=== PATIENT | female | born 1945 | race African-American/Black ===

== ENCOUNTER → 2018-05-24 | Day surgery (SDC) | payer OTHER, MEDICARE ==
[2018-05-23 08:20] VITALS: BMI 24.7
[~2018-05-24] MED LIST: ACETAMINOPHEN 325 MG TABLET (FP) PO ONE; LACTATED RINGERS SOLUTION 1,000 ML IV SCH; ONDANSETRON 4 MG/2 ML VIAL IVPUSH PRN; ceFAZolin SODIUM 1 GM VIAL IVPB ONE; oxyCODONE HCL 5 MG TABLET PO PRN
--- NOTE | 2018-05-24 17:04 | HP ---
History & Physical Update - History History: No Change - Physical Physical: No Change - Assessment Assessment: No Change - Plan Plan: No Change
[2018-05-24 18:24] VITALS: PULSE 80; TEMP 97.2
[2018-05-24 18:59] VITALS: BP 140/80
--- NOTE | 2018-05-25 12:02 | OP ---
DATE OF OPERATION: 05/24/2018 PREOPERATIVE DIAGNOSIS: Right breast cancer. POSTOPERATIVE DIAGNOSIS: Right breast cancer. PROCEDURE: Right breast wire-localized lumpectomy, sentinel node biopsy. SURGEON: Martha Garsia MD ANESTHESIA: General. ESTIMATED BLOOD LOSS: Minimal. COMPLICATIONS: None. This was a sterile procedure. INDICATION: Patient presented with a screening mammogram and ultrasound. The ultrasound noted 2 hypoechoic areas in the right 7 o'clock location. Needle biopsy of both of those showed invasive lobular carcinoma. My recommendation was a lumpectomy with sentinel node biopsy. The procedure was discussed with her. All of her questions answered. PROCEDURE IN DETAIL: Patient was brought to [facility] in [place], taken to breast imaging where a wire was used to localize the 2 clips in the right 7 o'clock location. She was then brought to Nuclear Medicine where I injected technetium-labeled sulfur colloid as an intradermal injection in the right breast 7 o'clock areolar border. She was then brought up to the operating room, and after induction of general anesthesia and 5 mL of isosulfan blue dye was injected into the right subareolar plexus, I also injected some peritumoral given she had a scar in the outer periareolar location. The breast was then massaged for 5 minutes. Next, the right breast and axilla were prepped and draped in usual sterile fashion. A 4-cm incision was made in the right axilla, carried down through the clavipectoral fascia to identify the very first sentinel node which was blue and hot. There were 2 other sentinel nodes. One was blue but not hot, and the other was hot and blue as well. These were all sent to Pathology for permanent section. There was no other blue dye, radioactivity, or pathologic feeling lymph nodes in the right axilla. Therefore, once hemostasis was assured, the right breast lumpectomy was performed. A radial incision was made in the lower outer right breast, and the wires were used as a guide to get down to the area of interest. This was excised en bloc, tagged with a long stitch lateral, short stitch superior. I felt I was close medially and anteriorly. Therefore, I took a new anterior margin over the medial tumor, as well as a new medial margin. These were tagged with a stitch at the old margin. The lumpectomy was sent specimen radiograph. I also took a new posterior margin with stitch at the old margin. This additional specimen was sent to Pathology for permanent section. The specimen radiograph showed 1 clip and 2 wires intact. Since it was possible that 1 clip had either fallen out or still in the breast. However, at this point, I would await the pathology from surgery as I feel I did get the area where the biopsies were performed, and nothing I felt in the lumpectomy cavity. Once hemostasis was assured, the lumpectomy parenchyma approximated with interrupted 2-0 Vicryl, skin approximated with interrupted 3-0 Vicryl and running 4-0 Prolene. The axillary incision also closed in the routine fashion of interrupted 3-0 Vicryl and running 4-0 Prolene. A sterile dressing with Tegaderm and 4 x 4's applied. She tolerated procedure well, was taken to Recovery in good condition. Harry [id number]
--- NOTE | 2018-05-29 15:51 | PATH ---
Surgical Pathology Report Patient Name: CRUZ REEDER [facility]. Rec. #: [id number] /Age/Gender: 1945 (Age: 72) / F Account: [id number] Location: [facility] SURGICAL Taken: 05/24/2018 Received: 05/25/2018 Reported: 05/29/2018 Physicians: Martha Garsia M.D. Specimen(s) Received A: RIGHT BREAST LUMPECTOMY B: RIGHT AXILLARY SENTINEL LYMPH NODE #1 C: RIGHT AXILLARY SENTINEL LYMPH NODE #2 D: RIGHT AXILLARY SENTINEL LYMPH NODE #3 E: RIGHT BREAST NEW ANTERIOR MARGIN F: RIGHT BREAST NEW MEDIAL MARGIN G: RIGHT BREAST NEW POSTERIOR MARGIN Clinical History Invasive Final Diagnosis AMENDED REPORT A. BREAST, RIGHT, LUMPECTOMY: TWO (2) FOCI OF INVASIVE LOBULAR CARCINOMA (TUBULE SCORE: 3/3, NUCLEAR GRADE: 2/3, MITOTIC SCORE: 1/3; TOTAL EDVIN SCORE: 6/9). INVASIVE CARCINOMA MEASURES 9 MM AND 4 MM IN GREATEST MICROSCOPIC DIMENSION. LOBULAR CARCINOMA IN SITU (LCIS), CLASSICAL TYPE. NO LYMPHOVASCULAR INVASION IDENTIFIED. ANTERIOR SURGICAL MARGIN IS INVOLVED BY INVASIVE CARCINOMA; ALL OTHER MARGINS ARE >5 MM AWAY. SEE SPECIMEN E-G FOR FINAL MARGINS. PRIOR BIOPSY SITE CHANGES ARE PRESENT. REMAINDER BREAST TISSUE SHOWS FIBROCYSTIC CHANGES. PATHOLOGIC STAGE (pTNM): pT1b (m) pN0(sn). SEE INVASIVE CARCINOMA CASE SUMMARY BELOW. B. AXILLARY SENTINEL LYMPH NODE #1, RIGHT, EXCISION: TWO LYMPH NODES NEGATIVE FOR CARCINOMA (0/2). C. AXILLARY SENTINEL LYMPH NODE #2, RIGHT, EXCISION: ONE LYMPH NODE NEGATIVE FOR CARCINOMA (0/1). D. AXILLARY SENTINEL LYMPH NODE #3, RIGHT, EXCISION: ONE LYMPH NODE NEGATIVE FOR CARCINOMA (0/1). E. BREAST, RIGHT, NEW ANTERIOR MARGIN, EXCISION: LOBULAR CARCINOMA IN SITU (LCIS), CLASSICAL TYPE WITH RARE MICROCALCIFICATIONS. NEGATIVE FOR INVASIVE CARCINOMA. F. BREAST, RIGHT, NEW MEDIAL MARGIN, EXCISION: BENIGN FIBROADIPOSE TISSUE. G. BREAST, RIGHT, NEW POSTERIOR MARGIN, EXCISION: BENIGN FIBROADIPOSE TISSUE AND SKELETAL MUSCLE. Comment: Immunohistochemical stains performed and interpreted at [facility] show the invasive carcinoma is positive for CK7; while negative for E-Cadherin, supportive of lobular phenotype. Findings discussed with Dr. Garsia. Comments Breast Invasive Carcinoma: Surgical Pathology Case Summary (Based on AJCC TNM 8 th edition) Procedure _X_ Excision (less than total mastectomy) Specimen Laterality _X_ Right Tumor Size _X_ Greatest dimension of largest invasive focus >1 mm (specify exact measurement) (millimeters): _9__ mm Histologic Type _X_ Invasive lobular carcinoma Histologic Grade ([place] Histologic Score) Glandular (Acinar)/Tubular Differentiation _X_ Score 3 (<10% of tumor area forming glandular/tubular structures) Nuclear Pleomorphism _X_ Score 2 Mitotic Rate _X_ Score 1 Overall Grade _X_ Grade 2 (scores of 6) Tumor Focality _X_ Multiple foci of invasive carcinoma Number of foci: _2_ Sizes of individual foci: _9 mm and 4 mm_ Ductal Carcinoma In Situ (DCIS) _X__ No DCIS in specimen Margins Invasive Carcinoma Margins _X__ Positive for invasive lobular carcinoma Specify margin(s): Anterior: Involved in lumpectomy (A); negative in final anterior margin (E); Regional Lymph Nodes Number of Lymph Nodes with Macrometastases (>2 mm): 0 Number of Lymph Nodes with Micrometastases (>0.2 mm to 2 mm and/or >200 cells): 0 Number of Lymph Nodes with Isolated Tumor Cells (=0.2 mm and =200 cells): 0 Number of Lymph Nodes Examined: 4 Number of Curlew Nodes Examined: 4 Treatment Effect _X__ No known presurgical therapy Lymphovascular Invasion _X__ Not identified Pathologic Stage Classification (pTNM, AJCC 8th Edition) TNM Descriptors (required only if applicable) _X_ m (multiple foci of invasive carcinoma) Primary Tumor (Invasive Carcinoma) (pT) _X__ pT1b: Tumor >5 mm but =10 mm in greatest dimension Regional Lymph Nodes (pN) Modifier (required only if applicable) _X__ (sn): Curlew node(s) evaluated. Category (pN) _X__ pN0: No regional lymph node metastasis identified or ITCs only Biomarker Studies are pending and will be reported separately. Electronically Signed Regi Lock M.D. Amendments Amended: 05/29/2018 Previous Signout Date: 05/29/2018 Comment: Part E, Change benign breast tissue to LCIS, classical type. Addendum Reported: 06/05/2018 Addendum Diagnosis Results of Estrogen Receptor (ER) and Progesterone Receptor (MS) studies performed on block "A1" at [facility] are as follows: ER (clone [id number] mouse monoclonal antibody by [employer]): ~90% nuclear staining with strong intensity (Positive). MS (clone16 mouse monoclonal antibody by [employer]):~70% nuclear staining with moderate to strong intensity (Positive). Positive and negative controls (internal if applicable) show appropriate results. Formalin fixation and cold ischemic times are within current ASCO/CAP recommendations for ER, MS and Her2 testing. Results of Her2 (IHC) & Ki-67 studies performed on block "A1" at [place], [place] ([id number]) are as follows: Her2 IHC (EP3 from [employer], formerly known as [id number], using [employer] Polymer Refine detection kit): 0 (Negative). Ki-67: ~10% (Low proliferative index). Positive and negative controls (internal if applicable) show appropriate results. Regi Lock M.D. Gross Description A. Received in formalin, labeled "right breast lumpectomy," is a 6.2 x 5.8 x 2.6 cm. morel-yellow, irregular, portion of fibroadipose tissue with 2 needle localization wires present. There is a short suture marking the superior aspect and a long suture marking the lateral aspect, per the surgeon. There is no skin or nipple present. The specimen is inked as follows: superior and lateral blue; inferior green; medial yellow; anterior red; deep black. The specimen is serially sectioned from lateral to medial. Sectioning reveals a 1.2 x 1.0 x 0.7 cm indurated mass at 0.5 cm from the inferior margin and 0.8 cm from the anterior margin. There is a second mass measuring 0.7 x 0.6 x 0.6 cm abutting the anterior margin. This second mass is 0.9 cm from the first mass. Product [employer]st sections are submitted in 8 cassettes as follows: 1-full face section of first mass (with anterior and inferior margins); 2-additional first mass with anterior and inferior margins; 3-both masses (second mass abutting anterior margin) with inferior margin; 4-additional second mass (with anterior, superior and inferior margins); 5-additional superior margin; 6-deep margin; 7-lateral margin; 8-medial margin. Total formalin fixation time: Approximately 25 hours B. Received in formalin labeled "right axillary sentinel lymph node #1," are 2 lymph nodes with attached fat measuring 0.9 and 1.7 cm in greatest dimension. The lymph nodes are entirely submitted in 4 cassettes as follows: 1-one bisected lymph node; 2-4-one trisected lymph node. C. Received in formalin labeled "right axillary sentinel node #2," is a 0.9 cm in greatest dimension lymph node with attached fat. The specimen is bisected and entirely submitted in one cassette. D. Received in formalin labeled "right axillary sentinel lymph node #3," is a 2.5 x 1.9 x 0.6 cm morel lymph node with attached fat. The specimen is bisected and entirely submitted in 2 cassettes. E. Received in formalin labeled "right breast new anterior margin," is a 3.3 x 2.5 x 0.6 cm portion of fibroadipose tissue with a suture marking the old margin, per the surgeon. The new margin is inked blue and the specimen is serially sectioned. The specimen is entirely submitted in 3 cassettes. F. Received in formalin labeled "right breast new medial margin," is a 3.7 x 1.7 x 1.0 cm portion of fibroadipose tissue with a suture marking the old margin, per the surgeon. The new margin is inked blue and the specimen is serially sectioned. The specimen is entirely and sequentially submitted in 4 cassettes. G. Received in formalin labeled "right breast new posterior margin," is a 3.0 x 2.4 x 0.8 cm portion of fibroadipose tissue with a suture marking the old margin, per the surgeon. The new margin is inked blue and the specimen is serially sectioned. The specimen is entirely submitted in 3 cassettes. 05/25/2018 saudi05/25/2018
== END | disposition home or self-care (01) ==
LOC: JASU-SURG 11:00
PROVIDERS: ATTEND Surgery
PROC: C71L1ZZ Planar Nuclear Medicine Imaging of Upper Chest Lymphatics using Technetium 99m (Tc-99m) (ICD-10-PCS; 2018-05-24)
PROC: 0HBT0ZZ Excision of Right Breast, Open Approach (ICD-10-PCS; principal; 2018-05-24 13:00)
PROC: 07B50ZX Excision of Right Axillary Lymphatic, Open Approach, Diagnostic (ICD-10-PCS; 2018-05-24 13:00)
DX: C50.911 Malignant neoplasm of unspecified site of right female breast (principal)
CPT/HCPCS: 19281; 19282; 88307-TC; 88341-TC; 88342-TC; 94760; A9541